=== PATIENT | female | born 1975 | race American Indian/Alaskan Native ===

== ENCOUNTER 2016-04-21 05:58 | Emergency (ER) | payer BC, MEDICAID ==
[2016-04-21 07:39] LABS: Basophils % (Auto) 0.7 % (0.0-1.8); Hematocrit 41.6 % (30.3-42.9); Hemoglobin 13.8 gm/dl (10.1-14.3); Mean Corpuscular HGB Conc 33 % (30-34); Mean Corpuscular Hemoglobin 31 pg (28-32); Mean Corpuscular Volume 92 fl (79-97); Platelet Count 233 K/mm3 (140-440); Red Blood Count 4.52 M/mm3 (3.65-5.03)
[2016-04-21 07:53] LABS: Alanine Aminotransferase 10 units/L (7-56); Albumin 4.2 g/dL (3.9-5); Albumin/Globulin Ratio 1.1 %; Alkaline Phosphatase 33 units/L (35-129); Anion Gap 23 mmol/L; BUN/Creatinine Ratio 15.71; Bilirubin,Total 0.3 mg/dL (0.1-1.2); Blood Urea Nitrogen 11 mg/dL (7-17); Calcium 9.1 mg/dL (8.4-10.2); Carbon Dioxide 17 mmol/L (22-30); Chloride 104.5 mmol/L (98-107); Glucose 180 mg/dL (65-100); Lipase 29 units/L (13-60); Potassium 3.6 mmol/L (3.6-5.0); Sodium 141 mmol/L (137-145); Total Protein 7.9 g/dL (6.3-8.2)
[2016-04-21 20:38] VITALS: BP 127/63
[2016-04-21] MEDS ORDERED: MORPHINE IM ONE (21:01)
[2016-04-21] MEDS ORDERED: ZOFRAN ODT PO ONE (21:01)
--- NOTE | 2016-04-21 21:18 | Emergency Department Report ---
HPI - General Chief Complaint: Abdominal Pain Time Seen by Provider: 04/21/16 20:48 - HPI HPI: The patient is a 40-year-old female who presents for evaluation of abdominal pain. The patient reports abdominal pain since 7 AM this morning, greater than 8 hours prior to my evaluation. She states that since onset she has experienced on and off generalized abdominal pain, cramping in quality, moderate to severe, exacerbated with retching, and associated with nausea and multiple episodes of nonbilious, nonbloody emesis. She has also experienced multiple episodes of brown loose watery stools. She shares that she ate a burrito last night for dinner and believes that it was the cause of her symptoms. The patient denies fever, dysuria, hematuria, vaginal discharge, blood in the stools, black tarry stools, recent antibiotic use, travel outside the country, exposure to raw or uncooked seafood, untreated water, unpasteurized dairy. ED Past Medical Hx - Past Medical History Previous Medical History?: No Hx Hypertension: No Hx Congestive Heart Failure: No Hx Diabetes: No Hx Deep Vein Thrombosis: No Hx Renal Disease: No Hx Sickle Cell Disease: No Hx Seizures: No Hx Asthma: No Hx COPD: No Hx HIV: No - Surgical History Past Surgical History?: Yes Additional Surgical History: c section - Social History Smoking Status: Never Smoker Substance Use Type: None - Medications Home Medications: Home Medications Medication Instructions Recorded Confirmed Last Taken Type HYDROcodone/APAP 7.5-325 [Glynn 1 each PO Q8HR PRN #12 tablet 04/21/16 Unknown Rx 7.5-325 mg TAB] Ondansetron [Zofran TAB] 4 mg PO Q8HR PRN #14 tablet 04/21/16 Unknown Rx ED Review of Systems ROS: Stated complaint: ABD PAIN,NAUSEA,VOMITITNG Other details as noted in HPI Constitutional: denies: fever ENT: denies: throat or neck pain Respiratory: denies: cough, shortness of breath Cardiovascular: denies: chest pain Endocrine: denies unexplained weight loss or gain Gastrointestinal: reports abdominal pain, nausea, diarrhea Genitourinary: denies: dysuria Musculoskeletal: denies: leg swelling Skin: denies: rash Neurological: denies: headache Hematological/Lymphatic: denies: easy bleeding or easy bruising Psych: denies sadness or hopelessness Physical Exam - Physical Exam Vital Signs: Vital Signs 04/21/16 04/21/16 04/21/16 06:05 16:50 20:37 Temperature 97.5 F L 98.4 F 98.2 F Pulse Rate 68 72 67 Respiratory 18 18 Rate Blood Pressure 107/66 Blood Pressure 142/77 127/63 [Right] O2 Sat by Pulse 100 100 100 Oximetry Physical Exam: General: well-nourished, well-developed, no acute distress Head: Normocephalic, atraumatic Eyes: normal sclera ENT: Mucous membranes are pink and moist Neck: trachea midline, neck supple, No neck stiffness, no cervical adenopathy Respiratory: Breath sounds equal bilaterally, no wheezing, rales, or rhonchi Cardio: S1 and S2 present, no murmurs, rubs, gallops, capillary refill is brisk Abdomen: Normoactive bowel sounds, soft abdomen, generalized tenederness to palpation, no rigidity, no guarding or rebound tenderness Musc: No pitting edema Skin: No rash Neuro: no facial drooping, normal speech Psych: Normal affect ED Course Vital Signs 04/21/16 04/21/16 04/21/16 06:05 16:50 20:37 Temperature 97.5 F L 98.4 F 98.2 F Pulse Rate 68 72 67 Respiratory 18 18 Rate Blood Pressure 107/66 Blood Pressure 142/77 127/63 [Right] O2 Sat by Pulse 100 100 100 Oximetry ED Medical Decision Making - Lab Data Result diagrams: 04/21/16 07:06 04/21/16 07:06 - Medical Decision Making The patient was seen and examined by myself. The patient is placed on a band aid machine operator and continuous pulse ox. On initial evaluation, the patient was found to be in no distress. Evaluation orders are placed. The patient is given an IM dose of morphine for her pain and a tablet of Zofran for nausea. Lab results were non-concerning including WBC, hemoglobin, hematocrit, electrolytes, renal function, LFTs, lipase, urinalysis, and neg preg test. The patient was reevaluated and reported that their symptoms were markedly improved. The patient is stable for discharge with outpatient follow-up. The patient is given follow-up and return instructions. The patient expressed understanding and agreed with the plan. The patient is discharged in stable condition. Critical care attestation.: If time is entered above; I have spent that time in minutes in the direct care of this critically ill patient, excluding procedure time. ED Disposition Clinical Impression: Acute generalized abdominal pain Disposition: DISCHARGED TO HOME OR SELFCARE Is pt being admited?: No Does the pt Need Aspirin: No Condition: Stable Instructions: Abdominal Pain (ED), Food Poisoning (ED), Gastroenteritis (ED) Prescriptions: HYDROcodone/APAP 7.5-325 [Glynn 7.5-325 mg TAB] 1 each PO Q8HR PRN #12 tablet PRN Reason: Pain Ondansetron [Zofran TAB] 4 mg PO Q8HR PRN #14 tablet PRN Reason: Nausea Referrals: PRIMARY CARE, [Primary Care Provider] - 3-5 Days Time of Disposition: 21:06
[2016-04-21 22:06] LABS: Bilirubin,Urine NEG (Negative); Blood,Urine LG (Negative); Ketones,Urine 20 mg/dL (Negative); Leukocyte Esterase,Urine SM (Negative); Nitrite,Urine NEG (Negative); Urobilinogen,Urine < 2.0 mg/dL (<2.0)
[2016-04-21 22:07] LABS: RBC,Urine > 182.0 /HPF (0.0-6.0); WBC,Urine < 1.0 /HPF (0.0-6.0)
== END 2016-04-21 23:01 | disposition home or self-care (01) ==
LOC: ED 05:58
DX: R10.84 Generalized abdominal pain (principal)
CPT/HCPCS: 36415; 80053; 81001; 81025; 83690; 84703; 85025; 96372; 99284; J2270; Q0162